=== PATIENT | male | born 1985 | race Caucasian/White ===

== ENCOUNTER 2024-03-07 12:16 | Outpatient (CLI) | payer MEDICAID, SELFPAY ==
--- NOTE | ~2024-03-07 | XR_ITS ---
Lumbosacral Spine: AP and lateral views Clinical History: Pain Findings: The normal lordotic curve is maintained. The vertebral bodies and posterior elements are i ntact. The intervertebral disc spaces are preserved. The sacroiliac joints are normally outlined. Impression: No significant abnormality. Reviewed, dictated and finalized at [facility]. [facility] [employer] Impression: No significant abnormality.
[2024-03-07 12:45] LABS: Basophils Absolute Auto 0.08 K/mm3 (0.00-0.10); Eosinophils Absolute Auto 0.15 K/mm3 (0.02-0.50); Eosinophils Percent Auto 1.9 % (1.0-6.0); Hematocrit 41.5 % (40.0-54.0); Hemoglobin 14.2 g/dL (14.0-18.0); Immature Granulocyte Absolute 0.03 K/mm3 (0.00-0.00); Immature Granulocyte Percent A 0.4 % (0.0-0.0); Lymphocytes Absolute Auto 2.73 K/mm3 (1.10-4.50); Lymphocytes Percent Auto 34.1 % (18.0-42.0); Mean Corpuscular HGB Conc 34.2 g/dL (32-36); Mean Corpuscular Hemoglobin 30.1 pg (27.0-31.0); Mean Corpuscular Volume 87.9 fL (78.0-102.0); Mean Platelet Volume 9.1 fl (8.7-11.0); Monocytes Absolute Auto 0.49 K/mm3 (0.10-0.90); Monocytes Percent Auto 6.1 % (2.0-11.0); Neutrophils Absolute Auto 4.53 K/mm3 (1.70-7.20); Neutrophils Percent Auto 56.5 % (50.0-70.0); Platelet Count Result 294 K/mm3 (150-420); Red Blood Count 4.72 M/mm3 (4.70-6.10); Red Cell Distribution Width 12.6 % (11.6-14.4)
[2024-03-07 13:02] LABS: Hemoglobin A1C 5.1 % (<5.7)
[2024-03-07 13:23] LABS: Rheumatoid Factor Screen Negative (Negative)
[2024-03-07 13:43] LABS: Erythrocyte Sedimentation Rate 11 mm/hr (0-15)
[2024-03-07 14:13] LABS: Alanine Aminotransferase 32 U/L (16-63); Albumin Level 3.9 g/dL (3.4-5.0); Alkaline Phosphatase 87 U/L (46-116); Anion Gap 8 mmol/L (4-12); Aspartate Amino Transferase 17 U/L (15-37); Bilirubin,Total 0.3 mg/dL (0.00-1.00); Blood Urea Nitrogen 9 mg/dL (7-18); Calcium 8.8 mg/dL (8.5-10.1); Carbon Dioxide 29 mmol/L (21-32); Chloride 105 mmol/L (98-108); Cholesterol 185 mg/dL (0-200); Estimated Glomerular Filt Rate > 60; Glucose 90 mg/dL (70-99); HDL Direct 34 mg/dL (40-60); LDL Cholesterol Calculated 110 mg/dL (<130); Osmolality Calculated 292 mOsm/kg (285-295); Potassium 3.8 mmol/L (3.5-5.1); Sodium 142 mmol/L (136-145); Total Protein 7.6 g/dL (6.4-8.2); Triglycerides 203 mg/dL (0-150); Uric Acid 4.2 mg/dL (3.5-7.2); Vitamin B12 465 pg/mL (193-986)
[2024-03-07 14:14] LABS: CRP < 0.5 mg/dL (0.0-0.9)
[2024-03-09 05:49] LABS: Vitamin D 25 Hydroxy 15 ng/mL (30-100)
[2024-03-09 14:42] LABS: Lyme Disease Ab (IgM), Blot NEGATIVE (NEGATIVE); Lyme Disease Ab(IgG), Blot NEGATIVE (NEGATIVE)
[2024-03-09 15:27] LABS: Anti Cyclic Citrullinated Pept <16 UNITS
== END 2024-03-07 12:17 | disposition home or self-care (01) ==
PROVIDERS: PCP Family Medicine; Visit Provider Family Medicine
DX: R73.09 Other abnormal glucose (principal); E78.5 Hyperlipidemia, unspecified; M25.50 Pain in unspecified joint; R20.0 Anesthesia of skin; R53.83 Other fatigue
CPT/HCPCS: 36415; 72100; 80053; 80061; 82306; 82607; 83036; 84550; 85025; 85652; 86038; 86039; 86140; 86200; 86430; 86617

== ENCOUNTER 2024-03-15 12:58 | Outpatient (RCR) | payer OTHER, MEDICAID, SELFPAY ==
--- NOTE | 2024-03-15 14:00 | OPREHPOC ---
Outpatient Therapy Plan of Care This is a Multidisciplinary Plan of Care that may contain components documented by all disciplines (PT, OT, and ST.) PT Problem 1 PT Problem #1 Knowledge Deficit PT Goal 1 Goal / Goal Update 1. independent and compliant with HEP Target Visit 6 PT Problem 2 PT Problem #2 Pain PT Goal 1 Goal / Goal Update 1. decrease pain at worst to 2/10 or less in the lower back and down the bilateral LE's. 2. reduction of numbness/tingling sensations to the L buttock or lower back or higher. Target Visit 12 PT Problem 3 PT Problem #3 Impaired Range of Motion PT Goal 1 Goal / Goal Update 1. patient to display full lumbar active rom without more than 3/10 pain Target Visit 12 PT Problem 4 PT Problem #4 Impaired Strength PT Goal 1 Goal / Goal Update 1. patient to display 4+/5 or better bilateral hip strength 2. patient to display 5/5 bilateral knee strength 3. patient to display 5/5 bilateral ankle DF Target Visit 12 PT Problem 5 PT Problem #5 Impaired Functional Mobil PT Goal 1 Goal / Goal Update 1. patient to ambulate with normal gait mechanics 2. oswestry to display 20% or less functional deficits 3. patient to lift 40lbs from floor safely with no increased pain or symptoms. Target Visit 12
--- NOTE | 2024-03-15 14:01 | PTOPEVAL1 ---
Assessment and note entered by [employer], PT Evaluation Information Assessment Status Evaluation ICD-10 Condition Codes (PT) M54.16 Onset 03/05/24 Subjective Information patient reports he is having pain, numbness, and tingling down the L LE. he reports he can still feel sensation with touching the leg, but reports it only feels like pressure. he reports the leg feels like TV static. he reports he has been having symptoms for about a week and a half. however, he reports he does have a previous back injury from when he was 21 yo. he reports when we was 21, he reports he had to use quite a bit of force to turn a pipe and felt a pop in the back. he reports this time around he did have an injury . he reports he was pulling an engine from a car that was about 500lbs or so. he reports he did not have immediate symptoms, but on the way home felt pain and inability to sit in the car. he reports now he is unable to sit with comfort. he reports he constantly needs to move. he reports he does have an MRI upcoming. Reported Pain Level Pain Score 6: Self Report Assessment PT Clinical Summary mr. donnelly presents to skilled PT services for evaluation and treatment of lumbar radiculopathy down the L more than R LE. he had an injury to the lower back during a lifting incident. today, he displays decreased rom, weakness, pain, and poor posture/gait mechanics. he has symptoms down the L LE that are reproduced with special testing and sitting/flexion activities. 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 he would benefit from continued skilled PT to address his objective/functional deficits and progress towards a return to his prior level functional activity performance/quality of life. Plan of Care Interventions Electrical Stimulation,Gait Training,Hot Pack/Cold Pack,Manual Therapy,Mechanical Traction,Neuro Re- education,Patient/Caregiver Educati,Therapeutic Activities,Therapeutic Exercise PT Services Indicated Yes Treatment Frequency and 2x weekly for 12 visits Duration These treatments will address the objective and functional deficits as defined above. The patient will be advanced safely and appropriately in order for the patient to progress towards his/her prior level of function. Additional exercises will be introduced and as well as a comprehensive home exercise program upon discharge, if needed, ?to ensure carryover of functional gains achieved in the clinic. This treatment plan has been reviewed and agreement upon by the patient.
== END 2024-03-15 14:00 | disposition home or self-care (01) ==
LOC: CHSPT 12:58
PROVIDERS: Visit Provider Registered Nurse
DX: M54.16 Radiculopathy, lumbar region (principal)
CPT/HCPCS: 97014; 97110; 97161; G0283

== ENCOUNTER 2024-03-26 07:10 | Outpatient (CLI) | payer MEDICAID, SELFPAY ==
--- NOTE | ~2024-03-26 | MR_ITS ---
EXAMINATION: MR lumbar spine wo/w con DATE: 03/26/2024 08:09 INDICATION: Low back pain radiating to the hips. TECHNIQUE: Magnetic resonance imaging (MRI) of the lumbar spine was performed without and with 10 mL MultiHance intravenous contrast. COMPARISON: Lumbar spine radiographs 03/07/2024 FINDINGS: There is 5 degrees levocurvature of lumbar spine. There is mild chronic anterior wedging of L1 vertebral body. There are Schmorl's nodes at most levels. There is mildly decreased disc height a t L2-L3. The distal spinal cord signal intensity is normal. The conus medullaris is at L1. The follow ing disc levels are specifically discussed: L1-L2: The disc does not extend beyond the endplate margin. There is mild bilateral facet joint osteo arthritis. There is no neural foraminal stenosis. There is no central canal stenosis. L2-L3: The disc is bulging. There is moderate bilateral facet joint osteoarthritis. There is mild isa ateral neural foraminal stenosis. There is mild central canal stenosis. L3-L4: The disc is bulging. There is mild bilateral facet joint osteoarthritis. There is mild bilater al neural foraminal stenosis. There is mild central canal stenosis. L4-L5: The disc does not extend beyond the endplate margin. There is mild right facet joint osteoarth ritis. There is no neural foraminal stenosis. There is no central canal stenosis. L5-S1: The disc is bulging and has an annular fissure. There is mild bilateral facet joint osteoarthr itis. There is mild bilateral neural foraminal stenosis. There is mild central canal stenosis. IMPRESSION: 1. Mild lumbar spondylosis. Reviewed, dictated and finalized at location A. [employer] [employer] IMPRESSION: 1. Mild lumbar spondylosis.
== END 2024-03-26 07:11 | disposition home or self-care (01) ==
LOC: CHSIMG 07:11
PROVIDERS: PCP Family Medicine; Visit Provider Registered Nurse
DX: M89.9 Disorder of bone, unspecified (principal); M43.06 Spondylolysis, lumbar region
CPT/HCPCS: 72158; A9577

== ENCOUNTER 2024-04-07 13:37 | Outpatient (CLI) | payer OTHER, SELFPAY ==
--- NOTE | ~2024-04-07 | US_ITS ---
US scrotum doppler INDICATION: Testicular pain TECHNIQUE: Testicular sonogram utilizing grayscale and color Doppler FINDINGS: The testes are normal in size and appearance. No focal lesions are seen. The right testes measures 4.4 x 3.2 x 2.6 cm centimeters, and the left testis measures 4.4 x 3 x 2.5 cm cm. There is n ormal vascular flow to both testes. The right and left epididymides appear normal. There are small bilateral hydroceles. There is evidence for varicocele. IMPRESSION: 1. Small hydroceles. 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 Small hydroceles.
== END 2024-04-07 13:38 | disposition home or self-care (01) ==
PROVIDERS: PCP Registered Nurse; Visit Provider Registered Nurse
DX: N50.811 Right testicular pain (principal); N43.3 Hydrocele, unspecified
CPT/HCPCS: 76870; 93976